=== PATIENT | female | born 1990 | race Hispanic/Latino ===

== ENCOUNTER 2019-10-12 19:37 | Emergency (ER) | payer SELFPAY | END 2019-10-12 21:50 | disposition home or self-care (01) | LOC: EDH 19:37 | DX: L30.9 Dermatitis, unspecified (principal); R03.0 Elevated blood-pressure reading, without diagnosis of hypertension; Z98.890 Other specified postprocedural states; Z87.891 Personal history of nicotine dependence | CPT/HCPCS: 99281 ==